=== PATIENT | female | born 1950 | race Caucasian/White ===

== ENCOUNTER → 2016-06-30 | Outpatient (CLI) | payer BC ==
[~2016-06-30] MED LIST: ASPEC81 PO; ATOR-22 PO; BIOT1CAP8 PO; LEVO112T2 PO; LSN5 PO; MELO7.5T5 PO; METF-384 PO; MULT-506 PO; OMEG10007 PO; OMEP40CA41 PO
--- NOTE | 2016-06-30 09:33 | DIAGNOSTIC IMAGING REPORT ---
LUMBAR SPINE CT CT DOSE: 616.47 mGy.cm HISTORY: Pain. Neuropathy. ACUTE BILATERAL LOW BACK PAIN W/ SCIATICA PRESENCE TECHNIQUE: Multiaxial CT images of the lumbar spine were performed and reformatted in the sagittal and coronal plane without the use of contrast. COMPARISON: None. FINDINGS: L1-L2: Negative for disc herniation or spinal stenosis. L2-L3: Minimal disc bulge. No significant spinal stenosis or foraminal stenosis. L3-L4: Moderate multifactorial spinal stenosis. Mild broad-based disc herniation. Moderate hypertrophic change posterior elements. Mild narrowing of the neuroforamina bilaterally. L4-L5. Moderate to significant multifactorial spinal stenosis. Broad-based disc herniation. Hypertrophic changes of posterior elements. Moderate compromise of the neuroforamina bilaterally. L5-S1: Focal posterior osteophytic reaction and posterior disc herniation. Moderate to significant multifactorial narrowing of the spinal canal. Moderate osteophytic narrowing of the neuroforamina bilaterally. IMPRESSION: 1. Significant degenerative disc change primarily from L4 through S1 2. Multifocal spinal stenosis at L4-L5, and to a somewhat lesser extent L5-S1 and L3-L4. 3. Moderate multifactorial narrowing of the bulk of the neuroforamina bilaterally. 4. No evidence for compression deformity or subluxation Electronically signed by: Willian Seaman M.D. 06/30/2016 9:32 AM Dictated Date/Time: 06/30/2016 9:26 AM
== END | disposition home or self-care (01) ==
LOC: C.CTS 09:12
PROVIDERS: ATTEND Orthopaedic Surgery
DX: M54.5 Low back pain (principal); M48.06 Spinal stenosis, lumbar region

== ENCOUNTER → 2016-09-05 | Outpatient (CLI) | payer BC ==
[2016-09-05 10:55] LABS: ESTIMATED AVERAGE GLUCOSE 131 mg/dl; HA1C FLAG Normal (Normal)
[2016-09-05 11:00] LABS: CALCIUM 9.9 mg/dl (8.5-10.1)
[2016-09-05 11:05] LABS: ALT/SGPT 24 U/L (12-78); BLOOD UREA NITROGEN 18 mg/dl (7-18); BUN/CREATININE RATIO 19.5 (10-20); CARBON DIOXIDE 28 mmol/L (21-32); CHLORIDE 106 mmol/L (98-107); CHOLESTEROL 144 mg/dl (0-200); CREATININE 0.94 mg/dl (0.60-1.20); GLUCOSE 101 mg/dl (70-99); POTASSIUM 4.2 mmol/L (3.5-5.1); SODIUM 142 mmol/L (136-145); TRIGLYCERIDES 227 mg/dl (0-150); VERY LOW DENSITY LIPOPROT CALC 45 mg/dl
[2016-09-05 11:17] LABS: ALB/GLOB RATIO 1.1 (0.9-2); ALKALINE PHOSPHATASE 93 U/L (45-117); AST/SGOT 21 U/L (15-37); CHOLESTEROL/HDL RATIO 3.1; HDL CHOLESTEROL 46 mg/dl; LDL CHOLESTEROL CALCULATED 53 mg/dl; THYROID STIMULATING HORMONE 0.306 uIu/ml (0.300-4.500)
[2016-09-05 11:22] LABS: RATIO 30.8 mcg/mg (0-30.0)
== END | disposition home or self-care (01) ==
LOC: C.LABBC 08:17
PROVIDERS: ATTEND Family Medicine
DX: I10 Essential (primary) hypertension (principal); E78.00 Pure hypercholesterolemia, unspecified; E03.9 Hypothyroidism, unspecified

== ENCOUNTER → 2016-11-07 | Outpatient (CLI) | payer BC ==
--- NOTE | 2016-11-08 07:41 | MAMMOGRAPHY REPORT ---
BILATERAL DIGITAL SCREENING MAMMOGRAM WITH CAD: 11/07/2016 CLINICAL HISTORY: Routine screening. Patient has no complaints. TECHNIQUE: Bilateral CC and MLO views were obtained. Current study was also evaluated with a Compute r Aided Detection (CAD) system. COMPARISON: Comparison is made to exams dated: 11/04/2015 mammogram, 10/14/2014 mammogram, 10/07/2013 m ammogram, 10/01/2012 mammogram, 09/20/2011 mammogram - [facility], and 06/11/1996 mamm ogram. BREAST COMPOSITION: The tissue of both breasts is almost entirely fatty. FINDINGS: The left MLO view is suboptimal due to reluctancy of patient to allow adequate positioning and compression given her left-sided pacemaker. Within the limitations of the exam, there are scatte red stable benign-appearing calcifications bilaterally. No new suspicious mass, architectural distor tion or cluster of microcalcifications is seen. IMPRESSION: ACR BI-RADS CATEGORY 1: NEGATIVE There is no mammographic evidence of malignancy. A 1 year screening mammogram is recommended. The pa tient will receive written notification of the results. Approximately 10% of breast cancers are not detected with mammography. A negative mammographic report should not delay biopsy if a clinically suggestive mass is present. Elza Caldwell M.D. ay/:11/07/2016 16:51:45 Talent Manager: Kay LANCE(R)(), [facility] letter sent: Normal 1/2 BI-RADS Code: ACR BI-RADS Category 1: Negative
== END | disposition home or self-care (01) ==
LOC: C.MAMM 14:00
PROVIDERS: ATTEND Family Medicine
DX: Z12.31 Encounter for screening mammogram for malignant neoplasm of breast (principal)

== ENCOUNTER → 2017-03-07 | Outpatient (CLI) | payer BC ==
[2017-03-07 10:47] LABS: BASO % 0.1 %; BASO ABS # 0.01 K/uL (0-0.2); COMPLETE YES; HEMATOCRIT 41.2 % (37-47); IG% 0.3 %; LYMPH ABS # 1.48 K/uL (1.2-3.4); MEAN CELL VOLUME 93.4 fL (80-100); MEAN CORPUSCULAR HEMOGLOBIN 32.2 pg (25-34); MEAN CORPUSCULAR HGB CONC 34.5 g/dl (32-36); MEAN PLATELET VOLUME 9.8 fL (7.4-10.4); MONO % 4.2 %; NEUT % 86.4 %; PLATELET COUNT 301 K/uL (130-400); RED BLOOD COUNT 4.41 M/uL (4.2-5.4); WHITE BLOOD COUNT 16.48 K/uL (4.8-10.8)
[2017-03-07 10:55] LABS: ESTIMATED AVERAGE GLUCOSE 123 mg/dl; HA1C FLAG Normal (Normal)
[2017-03-07 11:07] LABS: CREATININE RANDOM URINE 82.4 mg/dl
[2017-03-07 11:19] LABS: RATIO 19.9 mcg/mg (0-30.0)
[2017-03-07 13:38] LABS: ALT/SGPT 21 U/L (12-78); AST/SGOT 14 U/L (15-37); BLOOD UREA NITROGEN 17 mg/dl (7-18); BUN/CREATININE RATIO 17.3 (10-20); CALCIUM 9.7 mg/dl (8.5-10.1); CARBON DIOXIDE 25 mmol/L (21-32); CHLORIDE 106 mmol/L (98-107); CREATININE 0.99 mg/dl (0.60-1.20); GLUCOSE 129 mg/dl (70-99); SODIUM 139 mmol/L (136-145)
[2017-03-07 13:49] LABS: ALB/GLOB RATIO 1.1 (0.9-2); ALKALINE PHOSPHATASE 84 U/L (45-117); CHOLESTEROL 143 mg/dl (0-200); CHOLESTEROL/HDL RATIO 2.3; HDL CHOLESTEROL 63 mg/dl; LDL CHOLESTEROL CALCULATED 55 mg/dl; THYROID STIMULATING HORMONE 0.075 uIu/ml (0.300-4.500); TRIGLYCERIDES 124 mg/dl (0-150); VERY LOW DENSITY LIPOPROT CALC 25 mg/dl
== END | disposition home or self-care (01) ==
LOC: C.LABBC 09:08
PROVIDERS: ATTEND Nurse Practitioner Family
DX: K21.9 Gastro-esophageal reflux disease without esophagitis (principal); I10 Essential (primary) hypertension; E11.9 Type 2 diabetes mellitus without complications; E78.00 Pure hypercholesterolemia, unspecified; E03.9 Hypothyroidism, unspecified

== ENCOUNTER 2017-08-19 20:11 | Emergency (ER) | payer BC ==
[~2017-08-19] VITALS: Ht 149.9 cm; Wt 73.4 kg
[~2017-08-19 20:11] MED LIST changes: -ASPEC81 PO; +ASPI-320 PO
[2017-08-19 20:16] VITALS: TEMP 37; Ht 149.9 cm; Wt 73.4 kg
[2017-08-19] MEDS ORDERED: IBUPROFEN 600 MG TAB PO STA (21:11)
[2017-08-19] MEDS ORDERED: LSN20 PO (21:13)
[2017-08-19] MEDS ORDERED: NRN100 PO (21:13)
--- NOTE | 2017-08-19 21:13 | DIAGNOSTIC IMAGING REPORT ---
L HAND MIN 3 VIEWS ROUTINE CLINICAL HISTORY: eval for fx trauma COMPARISON: None. DISCUSSION: Moderate generalized degenerative change. Osteopenia. No evidence for fracture or dislocation. There is no evidence for soft tissue swelling. IMPRESSION: Degenerative change. Osteopenia. The above report was generated using voice recognition software. It may contain grammatical, syntax or spelling errors. Electronically signed by: Willian Seaman M.D. 08/19/2017 9:12 PM Dictated Date/Time: 08/19/2017 9:11 PM
--- NOTE | 2017-08-19 21:14 | DIAGNOSTIC IMAGING REPORT ---
L WRIST MIN 3 VIEWS ROUTINE CLINICAL HISTORY: eval for fx trauma COMPARISON: None. DISCUSSION: Generalized degenerative change. No well-defined evidence for fracture. Considerable degenerative change first carpometacarpal joint. There is no evidence for soft tissue swelling. IMPRESSION: Degenerative change. No acute process. The above report was generated using voice recognition software. It may contain grammatical, syntax or spelling errors. Electronically signed by: Willian Seaman M.D. 08/19/2017 9:12 PM Dictated Date/Time: 08/19/2017 9:12 PM
--- NOTE | 2017-08-19 21:15 | DIAGNOSTIC IMAGING REPORT ---
L RIBS UNILATERAL WITH PA CHEST CLINICAL HISTORY: eval for fx trauma. Pain. COMPARISON STUDY: None FINDINGS: Negative left ribs. Negative chest. IMPRESSION: Negative study The above report was generated using voice recognition software. It may contain grammatical, syntax or spelling errors. Electronically signed by: Willian Seaman M.D. 08/19/2017 9:13 PM Dictated Date/Time: 08/19/2017 9:13 PM
--- NOTE | 2017-08-19 21:21 | DIAGNOSTIC IMAGING REPORT ---
L HUMERUS MIN 2 VIEWS ROUTINE CLINICAL HISTORY: eval for fx trauma COMPARISON: None. DISCUSSION: The bones and joint spaces appear intact. There is no evidence of fracture, dislocation or bony disease. There is no evidence for soft tissue swelling. IMPRESSION: Negative study. The above report was generated using voice recognition software. It may contain grammatical, syntax or spelling errors. Electronically signed by: Willian Seaman M.D. 08/19/2017 9:20 PM Dictated Date/Time: 08/19/2017 9:19 PM
--- NOTE | 2017-08-19 21:22 | DIAGNOSTIC IMAGING REPORT ---
L SHOULDER MIN 2 VIEWS ROUTINE CLINICAL HISTORY: eval for fx trauma. Pain. COMPARISON: None. DISCUSSION: Moderate degenerative change. No evidence for fracture. Cortical margins are intact. There is no evidence for soft tissue swelling. IMPRESSION: No acute bony abnormality. The above report was generated using voice recognition software. It may contain grammatical, syntax or spelling errors. Electronically signed by: Willian Seaman M.D. 08/19/2017 9:21 PM Dictated Date/Time: 08/19/2017 9:20 PM
[2017-08-19 21:51] VITALS: BP 170/92; PULSE 73; O2SAT 99
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
== END 2017-08-19 21:52 | disposition home or self-care (01) ==
LOC: EDBD 20:11 → C.EDB 20:12
DX: S69.92XA Unspecified injury of left wrist, hand and finger(s), initial encounter (principal); S49.92XA Unspecified injury of left shoulder and upper arm, initial encounter; W10.1XXA Fall (on)(from) sidewalk curb, initial encounter; E11.9 Type 2 diabetes mellitus without complications; I10 Essential (primary) hypertension; Z90.710 Acquired absence of both cervix and uterus; F17.210 Nicotine dependence, cigarettes, uncomplicated; Z80.9 Family history of malignant neoplasm, unspecified; Z83.3 Family history of diabetes mellitus; Z82.49 Family history of ischemic heart disease and other diseases of the circulatory system; Z79.84 Long term (current) use of oral hypoglycemic drugs; Z79.899 Other long term (current) drug therapy; Z88.5 Allergy status to narcotic agent

== ENCOUNTER → 2017-08-23 | Outpatient (CLI) | payer BC ==
[~2017-08-23] MED LIST changes: -ASPI-320 PO; -BIOT1CAP8 PO; +LSN20 PO; -LSN5 PO; +NRN100 PO
--- NOTE | 2017-08-23 14:16 | DIAGNOSTIC IMAGING REPORT ---
RIBS BILATERAL WITH PA CHEST CLINICAL HISTORY: Bilateral chest wall pain. COMPARISON STUDY: Chest radiograph August 22, 2015 and left rib series August 19, 2017. FINDINGS: There is no pneumothorax or pleural effusion. Lungs are clear. A dual-lead left subclavian pacemaker is in place. Cardiomediastinal silhouette is unremarkable. No right or left-sided rib fractures are identified by radiography. Linear left basilar opacity suggestive of atelectasis. IMPRESSION: No pneumothorax. No right or left-sided rib fractures identified by radiography. Electronically signed by: Myron Kapoor M.D. 08/23/2017 2:15 PM Dictated Date/Time: 08/23/2017 2:03 PM
== END | disposition home or self-care (01) ==
LOC: C.RADBC 13:27
PROVIDERS: ATTEND Nurse Practitioner Family
DX: R07.89 Other chest pain (principal)

== ENCOUNTER → 2017-09-05 | Outpatient (CLI) | payer BC ==
[2017-09-05 10:55] LABS: BASO % 0.1 %; BASO ABS # 0.01 K/uL (0-0.2); EOS % 2.4 %; EOS ABS # 0.19 K/uL (0-0.5); HEMATOCRIT 41.8 % (37-47); IG# 0.02 K/uL (0.00-0.02); LYMPH % 32.3 %; LYMPH ABS # 2.53 K/uL (1.2-3.4); MEAN CELL VOLUME 93.1 fL (80-100); MEAN CORPUSCULAR HEMOGLOBIN 31.2 pg (25-34); MEAN CORPUSCULAR HGB CONC 33.5 g/dl (32-36); MEAN PLATELET VOLUME 9.7 fL (7.4-10.4); MONO % 7.7 %; NEUT % 57.2 %; NEUT ABS # 4.48 K/uL (1.4-6.5); PLATELET COUNT 313 K/uL (130-400); RED CELL DISTRIBUTION WIDTH SD 47.6 fL (36.4-46.3); WHITE BLOOD COUNT 7.83 K/uL (4.8-10.8)
[2017-09-05 11:55] LABS: HEMOGLOBIN A1C 6.1 % (4.5-5.6)
[2017-09-05 14:16] LABS: ALBUMIN 3.6 gm/dl (3.4-5.0); ALT/SGPT 23 U/L (12-78); AST/SGOT 18 U/L (15-37); BLOOD UREA NITROGEN 21 mg/dl (7-18); CALCIUM 9.3 mg/dl (8.5-10.1); CARBON DIOXIDE 25 mmol/L (21-32); CREATININE 0.95 mg/dl (0.60-1.20); GLUCOSE 102 mg/dl (70-99); POTASSIUM 4.1 mmol/L (3.5-5.1); SODIUM 140 mmol/L (136-145)
[2017-09-05 14:27] LABS: ALKALINE PHOSPHATASE 91 U/L (45-117); CHOLESTEROL 155 mg/dl (0-200); LDL CHOLESTEROL CALCULATED 70 mg/dl; TOTAL PROTEIN 7.1 gm/dl (6.4-8.2)
== END | disposition home or self-care (01) ==
LOC: C.LABBC 08:21
PROVIDERS: ATTEND Nurse Practitioner Family
DX: I10 Essential (primary) hypertension (principal); E11.9 Type 2 diabetes mellitus without complications; E03.9 Hypothyroidism, unspecified; E78.00 Pure hypercholesterolemia, unspecified; D64.9 Anemia, unspecified; R76.8 Other specified abnormal immunological findings in serum; I35.9 Nonrheumatic aortic valve disorder, unspecified

== ENCOUNTER 2018-05-14 08:14 | Inpatient (IN) ==
--- NOTE | 2018-05-07 11:30 | Anesthesiology Consultation ---
Date of Service May 07, 2018 Assessment & Plan Plan: - Cardio= 04/02/18= Normal pacemaker function. "Feeling well." Followup in one year recommended. S/P 09/2017= LEFT SHOULDER SCOPE= 10/10/17= GRADE VIEW 2, MAC 3, ETT 7.0 AT [facility]. Chart Review Chart Review: Acceptable Risk for Surgery and Patient seen in Pre Admission Testing Teaching & Discussion Pre-Anesthesia Teaching/Discussion Notes: Instructed NPO after midnight before surgery,except medications with 15 cc of water. Medication instructions provided according to the PAT guidelines. History Surgery Operation Date: 05/14/18 07:30 Proposed Procedures p L3-L4, L4-L5, L5-S1 Laminectomy and Fusion - Eugene Maza, Height/Weight Height: 4 ft 11 in Weight: 69.1 kg Allergies Allergy/AdvReac Type Severity Reaction Status Date / Time nickel Allergy Mild Rash Verified 04/30/18 10:28 oxycodone AdvReac Mild GI UPSET Verified 04/30/18 10:28 Additional Notes: OR/surgeon aware of nickel allergy Medications Home Medications Medication Instructions Recorded Confirmed Last Taken acetaminophen [Tylenol Extra 1,000 mg PO TID 02/20/18 04/30/18 02/25/18 20:00 Strength] albuterol sulfate [Ventolin HFA] 1 - 2 puff INHALATION Q4 PRN 02/20/18 04/30/18 Unknown ascorbic acid (vitamin C) [Vitamin 1,000 mg PO QAM 02/20/18 04/30/18 02/25/18 10 :00 C] atorvastatin 20 mg PO HS 02/20/18 04/30/18 02/25/18 20:00 celecoxib 200 mg PO BID 02/20/18 04/30/18 02/25/18 20:00 gabapentin 400 mg PO TID 02/20/18 04/30/18 02/25/18 20:00 hydrochlorothiazide 25 mg PO QAM 02/20/18 04/30/18 02/25/18 10:00 lisinopril 20 mg PO BID 02/20/18 04/30/18 02/25/18 10:00 metformin 1,000 mg PO BID 02/20/18 04/30/18 02/25/18 20:00 multivitamin 1 tab PO QAM 02/20/18 04/30/18 02/25/18 10:00 omega 2-dbt-yhy-fish oil [Fish Oil] 1 cap PO TID 02/20/18 04/30/18 02/25/18 20: 00 omeprazole 40 mg PO QAM 02/20/18 04/30/18 02/25/18 10:00 levothyroxine 100 mcg PO QAM 04/08/18 04/30/18 Unknown Past Medical History Medical History Asthmatic bronchitis NO RECENT ISSUES Diabetes mellitus, type 2 NIDDM Diverticular disease GERD (gastroesophageal reflux disease) CONTROLLED Hiatal hernia Hyperlipidemia Hypertension Hypothyroidism Obesity Osteoarthritis Pacemaker [employer] IMPLANTED 05/26 AVB LAST PACER CHECK 04/02/18 Restless leg syndrome Spinal stenosis Past Family History Family History Mother Family history of diabetes mellitus Family hx of colon cancer Sister Family history of diabetes mellitus Grandfather Family history of diabetes mellitus maternal Family/Other Family history of diabetes mellitus maternal uncle Past Surgical History Surgical History History of colonoscopy History of dilatation and curettage History of esophagogastroduodenoscopy (EGD) History of repair of left rotator cuff 09/2017= LEFT SHOULDER SCOPE= 10/10/17= GRADE VIEW 2, MAC 3, ETT 7.0 AT [facility] History of tonsillectomy History of tooth extraction WISDOM TEETH History of total abdominal hysterectomy and bilateral salpingo-oophorectomy History of total left knee replacement (TKR) History of total right knee replacement (TKR) S/P LASIK surgery of both eyes Status post left foot surgery BUNIONECTOMY Past Anesthesia History No Hx of Anesthesia Complications and No Family Hx of Anesthesia Complications History of PONV No Motion Sickness Screening History of Motion Sickness: Yes Social History Smoking Status: Current every day smoker tobacco type: cigarettes Do You Dip or Chew Tobacco: No Smoking End Date: SMOKES 3/4 PPD X 40 YRS Hx Alcohol Use: No Hx Substance Use: No Exercise / Class Metabolic Activity III < 4 Walking/Shop/Light housework Review of Systems Patient denies chest pain, shortness of breath, cough, wheezing, palpitations. Physical Exam Vital Signs VITALS BP 151/86 P 69 TEMP 97.7 SP02 96%RA RESP 20 Full neck and c-spine range of motion. Full TMJ range of motion. TMD 2.5 finger breaths Mallampati Score 3 Dentition: "cracked" molar per patient Lungs: clear throughout to auscultation Cardiac: regular rate and rhythm, no murmurs noted Spine: normal Carotid arteries: negative bruit Extremities: no edema Testing Electrocardiogram Date: 10/03/17 AV dual paced rhythm at 65bpm Chest X-Ray Date: 10/03/17 Findings: + NAD Echocardiogram Date: 03/28/16 LVEF 60-65%. No RWMA. Grade I DD. Mild AV sclerosis. Other Testing Pacer check= 04/02/18= 6.5 years estimated. "Mostly ventricular pacing with small R waves. No significant arrhythmias. Normal heart rate histograms" per 02/08 cardio office visit note. Pacer check= 12/06/17= [employer]. Mode AAIR <=> DDDR. Mode switched 0%. AP 32%. RVP 81.7%. Laboratory Results 05/07/18 11:58 05/07/18 11:58 Blood Type A Positive 05/07/18 11:58 Antibody Screen NEGATIVE 05/07/18 11:58 PT 10.6 Seconds (9.0-12.0) 05/07/18 11:58 INR 1.1 (0.9-1.1) 05/07/18 11:58 APTT 28.0 Seconds (21.0-31.0) 05/07/18 11:58 Surgeon made aware elevated WBC* 03/12/18 HGBA1C 6.1%
--- NOTE | 2018-05-07 11:39 | PAT Medication Instructions ---
Medication Instructions Date of Service May 07, 2018 Home Medications acetaminophen [Tylenol Extra 1,000 mg PO TID albuterol sulfate [Ventolin HFA] 1 - 2 puff INHALATION Q4 PRN ascorbic acid (vitamin C) [Vitamin 1,000 mg PO QAM atorvastatin 20 mg PO HS celecoxib 200 mg PO BID gabapentin 400 mg PO TID hydrochlorothiazide 25 mg PO QAM lisinopril 20 mg PO BID metformin 1,000 mg PO BID multivitamin 1 tab PO QAM omega 5-qdy-qfs-fish oil [Fish Oil] 1 cap PO TID omeprazole 40 mg PO QAM levothyroxine 100 mcg PO QAM ASK your surgeon for instructions celecoxib 200 mg PO BID STOP taking 2 weeks before surgery (or as soon as possible if surgery is within 2 weeks) omega 7-ccu-vft-fish oil [Fish Oil] 1 cap PO TID DO NOT take the morning of surgery ascorbic acid (vitamin C) [Vitamin 1,000 mg PO QAM hydrochlorothiazide 25 mg PO QAM lisinopril 20 mg PO BID metformin 1,000 mg PO BID multivitamin 1 tab PO QAM Take morning of surgery With a small sip of water, OTHERWISE NOTHING TO EAT OR DRINK AFTER MIDNIGHT: acetaminophen [Tylenol Extra 1,000 mg PO TID (okay to take up to 4 hours prior to surgery if needed) albuterol sulfate [Ventolin HFA] 1 - 2 puff INHALATION Q4 PRN (use if needed; please bring with you to hospital day of surgery if possible) gabapentin 400 mg PO TID omeprazole 40 mg PO QAM levothyroxine 100 mcg PO QAM Take evening before surgery acetaminophen [Tylenol Extra 1,000 mg PO TID albuterol sulfate [Ventolin HFA] 1 - 2 puff INHALATION Q4 PRN (if needed) atorvastatin 20 mg PO HS gabapentin 400 mg PO TID lisinopril 20 mg PO BID metformin 1,000 mg PO BID Other Notes If you have any questions please call us at [phone] or [phone] or [phone] or [phone]
[2018-05-07 14:13] LABS: Basophils # (auto) 0.03 K/uL (0-0.2); Basophils % (auto) 0.3 %; Eosinophils # (auto) 0.16 K/uL (0-0.5); Eosinophils % (auto) 1.4 %; Hematocrit (blood only) 44.3 % (37-47); Hemoglobin 14.8 g/dL (12.0-16.0); Immature Granulocytes # (auto) 0.03 K/uL (0.00-0.02); Immature Granulocytes % (auto) 0.3 %; Lymphocytes # (auto) 3.71 K/uL (1.2-3.4); Lymphocytes % (auto) 33.3 %; Mean Corpuscular Hgb Conc 33.4 g/dL (32-36); Mean Corpuscular Volume 93.1 fL (80-100); Mean Platelet Volume 10.5 fL (7.4-10.4); Monocytes # (auto) 0.56 K/uL (0.11-0.59); Neutrophils # (auto) 6.66 K/uL (1.4-6.5); Neutrophils % (auto) 59.7 %; Platelet Count 320 K/uL (130-400); RDW Coefficient of Variation 14.3 % (11.5-14.5); RDW Standard Deviation 48.3 fL (36.4-46.3); Red Blood Count 4.76 M/uL (4.2-5.4); White Blood Count 11.15 K/uL (4.8-10.8)
[2018-05-07 14:31] LABS: INR 1.1 (0.9-1.1); Partial Thromboplastin Ratio 1.1; Prothrombin Time 10.6 Seconds (9.0-12.0)
[2018-05-07 14:33] LABS: BUN Creatinine Ratio 14.2 (10-20); Calcium 9.7 mg/dl (8.5-10.1); Creatinine Clr Calc Pharmacy 41.4 ml/min; Est GFR (African American) 58.7; Est GFR (Non-African American) 50.6; Potassium 4.6 mmol/L (3.5-5.1)
--- NOTE | 2018-05-11 12:43 | History and Physical Report ---
DATE OF ADMISSION: 05/14/2018 CHIEF COMPLAINT: Back pain, lower extremity difficulty. WORKING DIAGNOSIS: Spinal stenosis/listhesis, lumbar spine. HISTORY OF PRESENT ILLNESS: She is a delightful patient. I am meeting her over the last few months. She has assortment of back and lower extremity difficulty, neurogenic claudication. She has no associated fevers, sweats, chills, or bowel and bladder concerns. PAST MEDICAL HISTORY: Positive for diabetes, thyroid disease, hypertension. PAST SURGICAL HISTORY: Knee replacement, pacemaker, hysterectomy. ALLERGIES: OXYCODONE. FAMILY HISTORY: Heart disease, colon CA. SOCIAL HISTORY: She is . No alcohol, tobacco. Very active lifestyle. The pain is shuttered down. REVIEW OF SYSTEMS: Negative for fever, sweats, chills. Ear, nose and throat negative. Denies chest pain, palpitations. No asthma, wheezing. No shortness of breath. No nausea, vomiting, urgency, frequency, dysuria. Her major complaint is back and lower extremity difficulty. PHYSICAL EXAMINATION: GENERAL: She is 4 feet 11 inches, 150. She is in distress. VITAL SIGNS: Blood pressure 130/80, pulse 80, respirations 16. HEENT: Essentially normal. Pupils react to light and accommodation. Ear, nose and throat clear. CARDIAC: Normal S1, S2, no S3. LUNGS: Clear to auscultation. No rales, rhonchi, wheezing. ABDOMEN: Soft and nontender. NEUROLOGICAL: Slight decrease in dorsiflexion and plantarflexion, slight loss of sensation. Images demonstrate stenosis and listhesis and slight degenerative scoliosis of the spine. PLAN: Includes a laminectomy and fusion, L3-S1 lumbar spine.
[~2018-05-14 08:14] MED LIST changes: -ATOR-22 PO; +CEFAZOLIN 2000MG 2,000 MG/15 ML SYR IV SCH; +LACTATED RINGER'S 1,000 ML IV SCH; -LEVO112T2 PO; -LSN20 PO; -MELO7.5T5 PO; -METF-384 PO; -MULT-506 PO; -NRN100 PO; -OMEG10007 PO; -OMEP40CA41 PO; +SODIUM CHLORIDE 0.9% 1000ML IV SCH
[2018-05-14] MEDS ORDERED: MIDAZOLAM HCL 1 MG/ML 2ML VIAL ONE (08:26)
[2018-05-14] MEDS ORDERED: fentaNYL citrate 100 MCG/2 ML VIAL ONE ×2 (08:27→15:14)
[2018-05-14] MEDS ORDERED: VANCOMYCIN HCL 1000MG/20ML VIAL ONE (10:47)
[2018-05-14] MEDS ORDERED: THROMBIN FOR SOLN 20000 UNIT KIT ONE (10:48)
[2018-05-14] MEDS ORDERED: BACITRACIN INJ 50,000 UNIT VIAL ONE (10:48)
[2018-05-14] MEDS ORDERED: GELATIN SPONGE SZ 100 ONE (10:48)
[2018-05-14] MEDS ORDERED: BUPIVACAINE/EPINEPHRINE 0.5% MPF 1:200,000 30 ML VIAL ONE (10:48)
--- NOTE | 2018-05-14 10:57 | History & Physical Bridge Note ---
Date of Service May 14, 2018 History & Physical Bridge Note I have examined the patient, reviewed the History & Physical and in the interval since the performance of the History & Physical I have noted the following changes of clinical significance: no changes noted
[2018-05-14] MEDS ORDERED: HYDROmorphone INJ 2 MG/ML SYR/VIAL ONE (12:09)
[2018-05-14] MEDS ORDERED: LARYING-O-JET KIT (LTA) ONE (12:14)
[2018-05-14] MEDS ORDERED: PROPOFOL IV EMULSION 10 MG/ML 20 ML VIAL IV ONE (12:14)
[2018-05-14] MEDS ORDERED: ONDANSETRON INJ 2 MG/ML 2 ML VIAL ONE (12:14)
[2018-05-14] MEDS ORDERED: DEXAMETHASONE SOD INJ 4 MG/ML VIAL ONE (12:14)
[2018-05-14] MEDS ORDERED: ROCURONIUM BROMIDE 10 MG/ML 5 ML VIAL ONE (12:14)
[2018-05-14] MEDS ORDERED: GLYCOPYRROLATE 0.2 MG/ML VIAL ONE (12:14)
[2018-05-14] MEDS ORDERED: NEOSTIGMINE METHYLSULFATE 5 MG/5 ML SYR ONE (12:14)
[2018-05-14] MEDS ORDERED: PHENYLEPHRINE HCL 10 MG/ML VIAL ONE (12:14)
[2018-05-14] MEDS ORDERED: LIDOCAINE HCL 2% 2 ML VIAL/AMP(20MG/ML) INFIL ONE (12:14)
--- NOTE | 2018-05-14 14:22 | Fluoroscopy Report ---
FL spine 1V any level CLINICAL HISTORY: 68 years-old Female presenting with L3-S1 LAMI AND FUSION. TECHNIQUE: 1 fluoroscopic image(s) recorded as part of an intraoperative procedure. COMPARISON: None. FINDINGS/IMPRESSION: Transpedicular screw fixation of L3-S1. Surgical and she mentation projects over the posterior lumbar region. Please see surgical report for further details. Fluoroscopy dosage (mGy): 2.83. Fluoroscopy time: 6.2 seconds. Number or time of fluoroscopic spot images: 0. Electronically signed by: Ruben Hernández M.D. 05/14/2018 2:21 PM
--- NOTE | 2018-05-14 14:31 | Post Operative Brief Note ---
Immediate Post Op Note v1 Date of Surgery May 14, 2018 Pre & Post Diagnosis Operation Date: 05/14/18 10:30 Pre-Op Diagnosis: Spinal Stenosis Post-Op Diagnosis: Spinal Stenosis Procedure Operation Date: 05/14/18 10:30 Actual Procedures p L3-L4, L4-L5, L5-S1 Laminectomy and Fusion - Eugene Maza DO Surgeon Eugene Maza DO Soil Engineer kwaku Estimated Blood Loss 300 Findings Consistent with Post-Op Diagnosis Drains Calloway Catheter and Hemovac Drain Complications none
--- NOTE | 2018-05-14 15:09 | Anesthesiology Progress Note ---
Date of Service May 14, 2018 Anesthesia Post Procedure Vital Signs Vital Signs: Temp Pulse Pulse Resp BP BP Pulse Ox 05/14/18 15:07 36.5 C 60 16 147/83 H 100 05/14/18 14:46 60 8 L 150/78 H 100 05/14/18 14:45 60 15 100 05/14/18 14:41 60 15 157/76 H 100 05/14/18 14:40 60 11 L 100 05/14/18 14:36 60 9 L 154/82 H 100 05/14/18 14:35 61 12 100 05/14/18 14:30 61 10 L 169/83 H 100 05/14/18 14:26 36.4 C L 67 65 17 152/92 H 153/92 H 100 05/14/18 14:25 100 05/14/18 09:04 36.8 C 85 20 132/79 95 Pain Intensity Right Leg: Pain Intensity: 0 Back: Pain Intensity: 0 Notes Mental Status: alert / awake / arousable and participated in evaluation Nausea / Vomiting: adequately controlled Pain: adequately controlled Airway Patency, RR, SpO2: stable & adequate BP & HR: stable & adequate Hydration State: stable & adequate Anesthetic Complications: no major complications apparent and Pt Satisfied with anesthetic care
[2018-05-14] MEDS ORDERED: ONDANSETRON INJ 2 MG/ML 2 ML VIAL IV PRN (15:11)
[2018-05-14] MEDS ORDERED: HYDROmorphone INJ 1 MG/ML SYRINGE IV PRN (15:11)
[2018-05-14] MEDS ORDERED: ePHEDrine sulfate 50 MG/ML AMP IV PRN (15:11)
[2018-05-14] MEDS ORDERED: fentaNYL citrate 100 MCG/2 ML VIAL IV PRN (15:11)
[2018-05-14] MEDS ORDERED: ATROPINE SULFATE 0.1 MG/ML 10ML SYR IV PRN (15:11)
--- NOTE | 2018-05-14 15:35 | Operative Report ---
DATE OF OPERATION: 05/14/2018 PREOPERATIVE DIAGNOSIS: Instability and severe stenosis, lumbar spine, L3 to the sacrum. POSTOPERATIVE DIAGNOSIS: Instability and severe stenosis, lumbar spine, L3 to the sacrum. PROCEDURES: Include 1. Laminectomy L3, L4, L5, and sacrum, 4-level laminectomy, foraminotomy, partial facetectomy, and decompression of the cauda equina. 2. Pedicle in screw segmental instrumentation, L3, L4, L5. 3. Posterior lateral fusion, L3, L4, L5, and sacrum bilaterally. SURGEON: Eugene Maza DO. LAN SPECIALIST: Cruzito Clayton PA-C. COMPLICATIONS: There were no complications. BLOOD LOSS: Controlled at 300. COUNTS: Sponge and needle counts correct. IMPLANTS USED: Holographic Projection for Architecture. DESCRIPTION OF PROCEDURE: Patient was taken to the operating room. A general intubated anesthetic provided to the patient. Calloway catheter administered as well. Placed prone, prepped and draped sterile. We made skin incision, fascial incision. We came down on the spine. We put in deep self-retaining retractor. We decompressed the neural elements starting at the sacrum up to L5, to L4, and to L3, essentially a 4 level decompression laminectomy. Foraminotomies were obtained as well and provided and partial facetectomy. We tried to preserve some of the facet joints. I felt she was moderately unstable, not grossly unstable, but she did have a spondylolisthesis, so we decided to instrument the spine, safely getting pedicle screws on the left hand side at L4, L5, and sacrum and the right hand side sacrum and L4. I skipped L5, I felt the screw was in jeopardy. We irrigated it thoroughly. X-rays were appropriate. Prior to closure, I put several sutures, a small bleb on the dura, I could not tell if it was a little bleb that came on from her stenosis or a small tear, really was hard to say. In any event, I placed 3-4 sutures in it to make that water tight. We then irrigated thoroughly with saline, about 500 mL. I placed some Gelfoam over the dural structures, some DuraSeal over the dural structures as well. We closed fascia to fascia with #1 Vicryl suture, 2-0 in subcuticular layer, 3-0 nylon on the skin. Prior to closure and after irrigation, we bone grafted the spine, safely getting bone graft from L3, L4, L5, and the sacrum bilaterally. Again, all we closed over drain over vancomycin powder. Sterile dressings applied. The patient extubated to PACU stable. No apparent complications. I attest to the content of the Intraoperative Record and any orders documented therein. Any exception s are noted below.
[2018-05-14] MEDS ORDERED: BISACODYL 10 MG SUPP PR PRN (16:09)
[2018-05-14] MEDS ORDERED: HYDROmorphone INJ 0.5 MG/0.5 ML SYR IV PRN (16:09)
[2018-05-14] MEDS ORDERED: ALBUTEROL HFA 8 GM INHALER INH PRN (16:09)
[2018-05-14] MEDS ORDERED: ACETAMINOPHEN 1,000 MG/100 ML VIAL IV PRN (16:09)
[2018-05-14] MEDS ORDERED: MAGNESIUM HYDROXIDE SUSP 30 ML UDC PO PRN (16:09)
[2018-05-14] MEDS: ONDANSETRON INJ 2 MG/ML 2 ML VIAL IV PRN (16:54)
[2018-05-14] MEDS: METFORMIN HCL 500 MG TAB PO SCH (18:45)
[2018-05-14] MEDS: CEFAZOLIN 2000MG 2,000 MG/15 ML SYR IV SCH (19:43)
[2018-05-14] MEDS: LISINOPRIL 20 MG TAB PO SCH (20:46)
[2018-05-14] MEDS: ATORVASTATIN 20 MG TAB PO SCH (21:11)
[2018-05-14] MEDS: DOCUSATE SODIUM/SENNA 50/8.6MG TAB PO SCH (21:11)
[2018-05-14] MEDS: CeleBREX 200 MG CAP PO SCH (21:12)
[2018-05-14] MEDS: GABAPENTIN 400 MG CAP PO SCH (21:13)
[2018-05-14] MEDS: OMEGA-3 (PURIFIED FISH OIL) 1 GM CAP PO SCH (21:13)
[2018-05-14] MEDS: ACETAMINOPHEN 500 MG TAB PO SCH (21:13)
[2018-05-14] MEDS: OXYCODONE HCL IR 5 MG TAB (IMMEDIATE RELEASE) PO PRN (22:48)
[2018-05-15] MEDS: CEFAZOLIN 2000MG 2,000 MG/15 ML SYR IV SCH (03:19)
[2018-05-15] MEDS: LEVOTHYROXINE SODIUM 100 MCG TABLET PO SCH (05:33)
[2018-05-15] MEDS: SODIUM CHLORIDE 0.9% 1000ML 1,000 ML IV SCH ×2 (06:33→06:34)
--- NOTE | 2018-05-15 08:11 | Anesthesiology Progress Note ---
Date of Service May 15, 2018 Anesthesia Post Procedure Vital Signs Vital Signs: Temp Pulse Pulse Pulse Resp BP BP 05/15/18 07:03 36.8 C 60 18 99/66 L 05/15/18 03:20 36.6 C 60 17 92/59 L 05/14/18 23:21 36.7 C 62 17 104/65 05/14/18 20:45 60 121/70 05/14/18 19:50 05/14/18 19:10 34.6 C L 60 16 126/60 05/14/18 18:00 36.2 C L 60 14 144/84 H 05/14/18 17:02 36.4 C L 60 14 119/71 05/14/18 16:28 36.5 C 60 14 132/82 05/14/18 16:00 36.4 C L 60 16 132/82 05/14/18 15:51 60 6 L 125/72 05/14/18 15:50 60 17 05/14/18 15:45 60 13 135/74 05/14/18 15:41 60 4 L 120/67 05/14/18 15:40 36.5 C 60 60 7 L 120/67 05/14/18 15:35 60 14 126/74 05/14/18 15:30 60 9 L 114/60 05/14/18 15:25 60 14 05/14/18 15:20 60 11 L 05/14/18 15:16 61 16 161/87 H 05/14/18 15:15 60 19 05/14/18 15:11 60 17 165/85 H 05/14/18 15:10 60 18 05/14/18 15:07 36.5 C 60 60 12 147/83 H 05/14/18 15:06 60 10 L 147/83 H 05/14/18 15:05 60 12 162/78 H 05/14/18 15:01 60 10 L 152/110 H 05/14/18 15:00 60 12 05/14/18 14:56 60 16 156/94 H 05/14/18 14:55 60 15 05/14/18 14:51 60 13 148/78 H 05/14/18 14:50 60 13 05/14/18 14:47 60 15 05/14/18 14:46 60 8 L 150/78 H 05/14/18 14:45 60 15 05/14/18 14:41 60 15 157/76 H 05/14/18 14:40 60 11 L 05/14/18 14:36 60 9 L 154/82 H 05/14/18 14:35 61 12 05/14/18 14:30 61 10 L 169/83 H 05/14/18 14:26 36.4 C L 67 65 17 152/92 H 153/92 H 05/14/18 14:25 05/14/18 09:04 36.8 C 85 20 132/79 Pulse Ox 05/15/18 07:03 95 05/15/18 03:20 95 05/14/18 23:21 92 05/14/18 20:45 93 05/14/18 19:50 97 05/14/18 19:10 97 05/14/18 18:00 100 05/14/18 17:02 100 05/14/18 16:28 100 05/14/18 16:00 100 05/14/18 15:51 99 05/14/18 15:50 91 05/14/18 15:45 100 05/14/18 15:41 98 05/14/18 15:40 97 05/14/18 15:35 82 L 05/14/18 15:30 99 05/14/18 15:25 99 05/14/18 15:20 100 05/14/18 15:16 100 05/14/18 15:15 100 05/14/18 15:11 100 05/14/18 15:10 100 05/14/18 15:07 100 05/14/18 15:06 99 05/14/18 15:05 100 05/14/18 15:01 100 05/14/18 15:00 100 05/14/18 14:56 99 05/14/18 14:55 100 05/14/18 14:51 100 05/14/18 14:50 100 05/14/18 14:47 100 05/14/18 14:46 100 05/14/18 14:45 100 05/14/18 14:41 100 05/14/18 14:40 100 05/14/18 14:36 100 05/14/18 14:35 100 05/14/18 14:30 100 05/14/18 14:26 100 05/14/18 14:25 100 05/14/18 09:04 95 Pain Intensity Right Leg: Pain Intensity: 0 Back: Pain Intensity: 0 Notes Mental Status: alert / awake / arousable and participated in evaluation Patient Amnestic to Procedure: Yes Nausea / Vomiting: adequately controlled Pain: adequately controlled Airway Patency, RR, SpO2: stable & adequate BP & HR: stable & adequate Hydration State: stable & adequate Anesthetic Complications: no major complications apparent
[2018-05-15] MEDS: METFORMIN HCL 500 MG TAB PO SCH ×2 (08:33→17:08)
[2018-05-15] MEDS: CeleBREX 200 MG CAP PO SCH ×2 (08:33→21:39)
[2018-05-15] MEDS: GABAPENTIN 400 MG CAP PO SCH ×3 (08:34→21:35)
[2018-05-15] MEDS: MULTIVITAMIN TAB PO SCH (08:34)
[2018-05-15] MEDS: OMEGA-3 (PURIFIED FISH OIL) 1 GM CAP PO SCH ×3 (08:34→21:35)
[2018-05-15] MEDS: PANTOprazole 40 MG TAB PO SCH (08:35)
[2018-05-15] MEDS: ACETAMINOPHEN 500 MG TAB PO SCH ×3 (08:35→21:36)
[2018-05-15] MEDS: ASCORBIC ACID 500 MG TAB PO SCH (08:36)
[2018-05-15] MEDS: LISINOPRIL 20 MG TAB PO SCH ×2 (08:38→21:37)
[2018-05-15] MEDS: hydroCHLOROthiazide 25 MG TAB PO SCH (08:39)
[2018-05-15] MEDS: OXYCODONE HCL IR 5 MG TAB (IMMEDIATE RELEASE) PO PRN ×4 (08:41→21:33)
[2018-05-15] MEDS: ONDANSETRON INJ 2 MG/ML 2 ML VIAL IV PRN (14:47)
[2018-05-15] MEDS: ATORVASTATIN 20 MG TAB PO SCH (21:35)
[2018-05-15] MEDS: DOCUSATE SODIUM/SENNA 50/8.6MG TAB PO SCH (21:40)
[2018-05-16] MEDS: LEVOTHYROXINE SODIUM 100 MCG TABLET PO SCH (06:18)
--- NOTE | 2018-05-16 08:13 | Discharge Summary ---
She is alert, oriented, has a fairly uneventful postoperative recovery from fairly rigorous spinal surgery reconstruction. She is doing well. Better motion, decreased pain. Functional. Taking p.o. No deficits. IMPRESSION: Status post reconstruction, spinal surgery. PLAN: Will hopefully get her to inpatient rehab today. She has a prescription on her chart. She has a followup appointment. Her wound should be kept clean and dry. Up and ambulate with the walker as needed. Careful with bending, stooping, lifting. Use the back brace as indicated. I should see her back in the office in approximately 14 days.
[2018-05-16] MEDS: CeleBREX 200 MG CAP PO SCH (08:25)
[2018-05-16] MEDS: GABAPENTIN 400 MG CAP PO SCH ×2 (08:25→13:53)
[2018-05-16] MEDS: ASCORBIC ACID 500 MG TAB PO SCH (08:26)
[2018-05-16] MEDS: PANTOprazole 40 MG TAB PO SCH (08:27)
[2018-05-16] MEDS: OMEGA-3 (PURIFIED FISH OIL) 1 GM CAP PO SCH ×2 (08:27→13:54)
[2018-05-16] MEDS: METFORMIN HCL 500 MG TAB PO SCH ×2 (08:27→16:42)
[2018-05-16] MEDS: MULTIVITAMIN TAB PO SCH (08:27)
[2018-05-16] MEDS: ACETAMINOPHEN 500 MG TAB PO SCH ×2 (08:28→13:54)
[2018-05-16] MEDS: LISINOPRIL 20 MG TAB PO SCH (08:29)
[2018-05-16] MEDS: hydroCHLOROthiazide 25 MG TAB PO SCH (08:30)
[2018-05-16] MEDS: OXYCODONE HCL IR 5 MG TAB (IMMEDIATE RELEASE) PO PRN ×3 (08:32→16:56)
[2018-05-16] MEDS: ONDANSETRON INJ 2 MG/ML 2 ML VIAL IV PRN (16:37)
--- NOTE | 2018-05-17 13:38 | Coding Query ---
CODING QUERY To promote full compliance with coding requirements relating to patient care, provider participation is requested in all cases of clinical coder uncertainty. Please assist us with the question(s) below: Coding Question(s): Please clarify below, the type of Bone Grafting that was used in the procedure on 05/14/18. ( ) Autograft ( ) Allograft ( ) Both Autograft and Allograft ( ) Other: Please Specify Physician's Response(s): Thank you Gilma Santoyo Principal Diagnosis: "�that condition established after study, to be chiefly responsible for occasioning the admission of the patient to the hospital for care." Co-Existing Principal Diagnosis: "�when two or more diagnoses equally meet the criteria for principal diagnosis as determined by the circumstances of admission , diagnostic work up, and/or therapy provided, and the Alphabetic Index, Tabular List, or another coding guideline does not provide sequencing direction , any one of the diagnoses may be sequenced first." "When the physician has documented what appears to be a current diagnosis in the body of the record, but has not included the diagnosis in the final diagnostic statement, the physician should be asked whether the diagnosis should be added." ([facility] 2 QTR90. p3-4) DEEPAK
--- NOTE | 2018-05-22 12:23 | Operative Report ---
DATE OF OPERATION: 05/18/2018 ADDENDUM This is a coding query. The graft used for the patient was a combination of autograft and allograft. I attest to the content of the Intraoperative Record and any orders documented therein. Any exception s are noted below.
== END 2018-05-16 17:10 | DRG 460 ==
LOC: ASU 08:14 → 3E 14:37

== ENCOUNTER 2021-08-06 11:24 | Observation (INO) ==
--- NOTE | 2021-01-20 15:32 | PAT Medication Instructions ---
Medication Instructions Date of Service January 20, 2021 Home Medications Medication Instructions Recorded atorvastatin 20 mg tablet 20 mg PO HS #90 tab 06/02/20 omeprazole 40 mg capsule,delayed 40 mg PO QAM #90 cap 07/06/20 release montelukast 10 mg tablet 10 mg PO QPM #90 tab 07/28/20 celecoxib 200 mg capsule 200 mg PO BID #180 cap 08/26/20 lisinopril 20 mg tablet 20 mg PO BID #180 tab 10/07/20 hydrochlorothiazide 25 mg tablet 25 mg PO QAM #90 tab 11/03/20 metformin 500 mg 24 hr 500 mg PO BID #180 tab 12/07/20 tablet,extended release ascorbic acid (vitamin C) 1,000 mg tablet,extended release (Vitamin C ER) 1,000 mg PO QAM multivitamin 1 tab PO QAM omega 1-xyz-asg-fish oil 1,000 mg (120 mg-180 mg) capsule (Fish Oil) 1 cap PO BID ferrous sulfate 142 mg (45 mg iron) tablet,extended release (Slow Fe) 142 mg PO BID vitamin B complex-folic acid 0.4 mg tablet (Super B Maxi Complex) 1 tab PO HS atorvastatin 20 mg tablet 20 mg PO HS omeprazole 40 mg capsule,delayed release 40 mg PO QAM montelukast 10 mg tablet 10 mg PO QPM celecoxib 200 mg capsule 200 mg PO BID lisinopril 20 mg tablet 20 mg PO BID hydrochlorothiazide 25 mg tablet 25 mg PO QAM albuterol sulfate 90 mcg/actuation aerosol inhaler (Ventolin HFA) 1 - 2 puff INHALATION .Q4-6H PRN metformin 500 mg 24 hr tablet,extended release 500 mg PO BID levothyroxine 100 mcg tablet 88 mcg PO QAM ASK your surgeon for instructions celecoxib 200 mg capsule 200 mg PO BID STOP taking 2 weeks before surgery omega 7-ara-nzr-fish oil 1,000 mg (120 mg-180 mg) capsule (Fish Oil) 1 cap PO BID DO NOT take the morning of surgery ascorbic acid (vitamin C) 1,000 mg tablet,extended release (Vitamin C ER) 1,000 mg PO QAM multivitamin 1 tab PO QAM ferrous sulfate 142 mg (45 mg iron) tablet,extended release (Slow Fe) 142 mg PO BID lisinopril 20 mg tablet 20 mg PO BID hydrochlorothiazide 25 mg tablet 25 mg PO QAM metformin 500 mg 24 hr tablet,extended release 500 mg PO BID Take morning of surgery With a small sip of water, OTHERWISE NOTHING TO EAT OR DRINK AFTER MIDNIGHT: omeprazole 40 mg capsule,delayed release 40 mg PO QAM albuterol sulfate 90 mcg/actuation aerosol inhaler (Ventolin HFA) 1 - 2 puff INHALATION .Q4-6H PRN (use if needed; please bring with you to hospital day of surgery if possible) levothyroxine 100 mcg tablet 88 mcg PO QAM Take evening before surgery ferrous sulfate 142 mg (45 mg iron) tablet,extended release (Slow Fe) 142 mg PO BID vitamin B complex-folic acid 0.4 mg tablet (Super B Maxi Complex) 1 tab PO HS atorvastatin 20 mg tablet 20 mg PO HS montelukast 10 mg tablet 10 mg PO QPM lisinopril 20 mg tablet 20 mg PO BID albuterol sulfate 90 mcg/actuation aerosol inhaler (Ventolin HFA) 1 - 2 puff INHALATION .Q4-6H PRN (if needed) metformin 500 mg 24 hr tablet,extended release 500 mg PO BID Other Notes If you have any questions please call us at [phone] or [phone] or [phone] or [phone]
--- NOTE | 2021-01-25 13:00 | Anesthesiology Consultation ---
Date of Service January 25, 2021 Assessment & Plan (1) Encounter for pre-operative examination: Chart Review Chart Review: Acceptable Risk for Surgery (pending cardio clearance 02/08, most recent pacer check and preop Covid testing results ) and Patient seen in Pre Admission Testing Awaiting cardio clearance scheduled 02/08/21 Awaiting most recent pacemaker check - Check BSG AM DOS -Did inform OR office and marked on OR notification form that pacemaker rep needs to be present DOS (pacemaker noted to left chest wall- patient scheduled for left TSA) Per PAT appt on 01/25/21, patient did travel to [facility] 01/15/21 to 01/16/21 for [employer]- did wear mask. No known Covid positive contacts or Covid related symptoms. No known Covid infection in the past 90 days. Pt is vaccinated for Covid. Preop Covid testing scheduled 02/18/21 = will await results. 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 No chemo felt needed per oncologywe will continue with surveillance. Patient doing well and has recovered well since s urgery. Chest CT completed 01/12/2021final report still pending but per preliminary reviewno new or suspicious pulmonary nodules. No significant adenopathy changes appreciated. We will follow-up in 7 months. Teaching & Discussion Pre-Anesthesia Teaching/Discussion Notes: Instructed NPO after midnight before surgery,except medications with 15 cc of water. Medication instructions provided according to the PAT guidelines. History Surgery Operation Date: 02/22/21 07:00 Proposed Procedures p Left Reverse Total Shoulder Arthroplasty - Cruzito Thomas DO Height/Weight Height: 4 ft 11 in Weight: 63.5 kg Allergies Allergy/AdvReac Type Severity Reaction Status Date / Time nickel Allergy Mild Rash Verified 01/19/21 08:26 oxycodone Allergy Mild GI UPSET Verified 01/19/21 08:26 tramadol Allergy Mild Nausea Verified 01/19/21 08:26 Medications Home Medications Medication Instructions Recorded Confirmed Last Taken ascorbic acid (vitamin C) 1,000 mg 1,000 mg PO QAM 10/30/18 09/28/21 08/06/21 tablet,extended release (Vitamin C ER) multivitamin 1 tab PO QAM 02/20/18 01/19/21 11/27/20 omega 4-sqw-nvd-fish oil 1,000 mg 1 cap PO BID 02/20/18 01/19/21 11/27/20 08:00 (120 mg-180 mg) capsule (Fish Oil) ferrous sulfate 142 mg (45 mg 142 mg PO BID 10/28/19 01/19/21 11/27/20 08:00 iron) tablet,extended release (Slow Fe) vitamin B complex-folic acid 0.4 1 tab PO HS 10/28/19 01/19/21 11/26/20 mg tablet (Super B Maxi Complex) atorvastatin 20 mg tablet 20 mg PO HS #90 tab 06/02/20 01/19/21 11/26/20 omeprazole 40 mg capsule,delayed 40 mg PO QAM #90 cap 07/06/20 01/19/21 11/27/20 release montelukast 10 mg tablet 10 mg PO QPM #90 tab 07/28/20 01/19/21 11/26/20 celecoxib 200 mg capsule 200 mg PO BID #180 cap 08/26/20 01/19/21 11/27/20 08:00 lisinopril 20 mg tablet 20 mg PO BID #180 tab 10/07/20 01/19/21 11/27/20 08:00 hydrochlorothiazide 25 mg tablet 25 mg PO QAM #90 tab 11/03/20 01/19/21 11/27/20 albuterol sulfate 90 mcg/actuation 1 - 2 puff INHALATION .Q4-6H PRN 11/27/20 01/19/21 Unknown aerosol inhaler (Ventolin HFA) metformin 500 mg 24 hr 500 mg PO BID #180 tab 12/07/20 01/19/21 Unknown tablet,extended release levothyroxine 100 mcg tablet 88 mcg PO QAM 01/19/21 01/19/21 Unknown Past Medical History Medical History Diabetes mellitus, type 2 NIDDM Glucose well controlled and stable GERD (gastroesophageal reflux disease) CONTROLLED Hiatal hernia Hyperlipidemia Hypertension Hypothyroidism 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 Total tumor size 2.2 x 2.1 x 1.8 cm pathologic staging pT1c N0, stage IA3 large cell neuroendocrine carcinoma No chemo or XRT needed Obesity Osteoarthritis Pacemaker Medtronic- implanted 2014 Palpitations No recent issues Restless leg syndrome Spinal stenosis Exercise / Class Metabolic Activity II 4-5 Yardwork/Stairs/Walk up hill (ONE FLIGHT OF STAIRS- NO CHEST PAIN OR SOB ) Past Family History Family History Mother Family hx of colon cancer Diabetes Family history of diabetes mellitus Pure hypercholesterolemia Colorectal cancer Endometriosis Hypertension Sister Family history of diabetes mellitus Hypothyroidism Grandfather (Maternal) Diabetes Family history of diabetes mellitus maternal Son Cystic fibrosis Daughter Hypothyroidism Cystic fibrosis Uncle Diabetes Father Pure hypercholesterolemia Hypertension Other No family history of adverse response to anesthesia Denies family history of Ovarian cancer Prostate cancer Myocardial infarction Breast cancer Past Surgical History Surgical History History of anesthesia reaction LOW BP [place] [facility] [place] History of bilateral knee replacement History of cataract surgery BILAT History of colon surgery History of colonoscopy with polypectomy History of dilatation and curettage History of esophagogastroduodenoscopy (EGD) History of lumbar laminectomy (~04/2018) L3-S1, decompression/fusion History of repair of left rotator cuff 09/2017= LEFT SHOULDER SCOPE= 10/10/17= GRADE VIEW 2, MAC 3, ETT 7.0 AT [facility] History of tonsillectomy History of tooth extraction WISDOM TEETH History of total abdominal hysterectomy and bilateral salpingo-oophorectomy History of tubal ligation Pacemaker MEDTR[employer]IC IMPLANTED 05/26 AVB/ KIP RAVI LAST PACER CHECK 12/09/2020 S/P bronchoscopy S/P LASIK surgery of both eyes S/P lobectomy of lung [place] [facility] [place] CHEMO/NO RADIATION Status post left foot surgery BUNIONECTOMY Past Anesthesia History No Hx of Anesthesia Complications (WITH EXCEPTION TO LOW BP WITH LUNG LOBECTOMY SURGERY IN APR 2020 ([facility] NO KNOWN ISSUES WITH ALL OTHER SURGERIES) and No Family Hx of Anesthesia Complications History of PONV No Hx of PONV and Hx of Motion Sickness Social History Smoking Status: Current every day smoker tobacco type: cigarettes Smoking cigarettes per day: 15 CIGS A DAY Do You Dip or Chew Tobacco: No Hx Alcohol Use: No Hx Substance Use: No Review of Systems Mild cough- intermittent dry/productive- did get booster shot for Covid last week in Dec - cough improving Patient denies chest pain, shortness of breath, dyspnea on exertion, wheezing, palpitations. No hx of seizures, stroke, [place], apnea/snoring. No hx of blood clots or blood transfusions Physical Exam Vital Signs VITALS BP 104/66 (manually) P 62 TEMP 98.4 SP02 97% RESP 16 Constitutional no acute distress ENMT Mouth: no TMJ clicking Thyromental Distance: < 3.5 Finger Breadths (3.0) Mallampati Class: III Missing molar Neck neck extension not limited Respiratory normal respiratory effort; no respiratory distress Auscultation: lungs clear to auscultation bilaterally; no wheezes Cardiovascular Rate/Rhythm: regular rate and regular rhythm Heart Sounds: + murmur (II/ murmur) Vessels: no carotid bruit Musculoskeletal Spine: no pain with cervical ROM Extremities: extremities normal to inspection Psychiatric Orientation: alert Lab Results Anesthesia Preop Results Results Anesthesia Widget: WBC 8.06 K/uL (4.8-10.8) 01/25/21 Hgb 15.9 g/dL (12.0-16.0) 01/25/21 Hct 45.2 % (37-47) 01/25/21 Plt 286 K/uL (130-400) 01/25/21 Na 139 mmol/L (136-145) 01/25/21 K 3.8 mmol/L (3.5-5.1) 01/25/21 Cl 102 mmol/L (98-107) 01/25/21 CO2 26 mmol/L (21-32) 01/25/21 BUN 25 mg/dl (7-18) H 01/25/21 Creat 1.24 mg/dl (0.6-1.2) H 01/25/21 Glucose Level 123 mg/dl (70-99) H 01/25/21 PT 10.5 Seconds (9.0-12.0) 01/25/21 PTT 28.2 Seconds (21.0-31.0) 01/25/21 INR 1.0 (0.9-1.1) 01/25/21 TSH 2.100 uIu/ml (0.300-4.500) 11/30/20 HA1c 6.4 % (4.5-5.6) H 01/25/21 Blood Type A Positive 01/25/21 Antibody Screen NEGATIVE 01/25/21 Testing Electrocardiogram Date: 01/25/21 AV dual-paced rhythm with prolonged AV conduction at 65bpm Chest X-Ray Date: 01/25/21 Findings: + NAD Stable appearance of dual-lead pacemaker. Previously noted nodular density in the right upper lobe is no longer visualized status post right upper lobectomy. Echocardiogram Date: 03/24/20 EF: 60-65% LV Function: normal RWMA: + none Other Findings: + LVH (mild/concentric ) and + diastolic dysfunction (Grade I ) Discrete nodular thickening of left coronary cusp. Mild aortic sclerosis- no significant aortic stenosis Abnormal (paradoxical) septal motion consistent with RV pacemaker. Moderate mitral annular calcification. Focally calcified leaflets Pulmonary Function Test Date: 09/11/20 Spirometry shows a mild obstructive ventilatory defect. There is no spirometric restriction. There was no significant response to bronchodilators. Diffusion capacity is mildly impaired. Lung volumes are normal. Resting room air SPO2 is 95%.
--- NOTE | 2021-08-04 10:48 | Anesthesiology Consultation ---
Date of Service August 04, 2021 Assessment & Plan (1) Encounter for pre-operative examination: Chart Review Chart Review: Acceptable Risk for Surgery and Patient NOT seen in Pre Admission Testing -Will leave to anesthesiologist discretion DOS if coags needed - Check BSG AM DOS -Did inform OR office and marked on OR notification form that pacemaker rep needs to be present DOS (pacemaker noted to left chest wall- patient scheduled for left TSA) Per nursing assessment 08/03/21, patient denies any recent travel. No known Covid positive exposures or Covid related symptoms. Pt did test Covid positive on 06/15/21 (had cough, SOB, difficulty breathing)- symptoms have since resolved. Pt is fully vaccinated for Covid. Preop Covid testing scheduled 08/04/21= will await results. If patient tests Covid positive- she can proceed as scheduled without additional Covid contact precautions due to 90 days Covid protocol. Seen by EP 02/08/21=Dual-chamber pacemakernormal function. Presyncopesymptoms resolved since implantation of pacemakerpresumably due to bradycardia. AV blockventricular pacing 100%. 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 "I do not believe there is any concerns regarding her upcoming shoulder surgery. She is pacemaker dependent, and will require either magnet application or, given the location of her surgery, reprogramming of the device to a non sensing mode if electrocautery is used. No Special precautions from a cardiac standpoint. 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 No chemo felt needed per oncologywe will continue with surveillance. Patient doing well and has recovered well since surgery. Chest CT completed 01/12/2021final report still pending but per preliminary reviewno new or suspicious pulmonary nodules. No significant adenopathy changes appreciated. We will follow-up in 7 months. History Surgery Operation Date: 05/24/21 07:00 Proposed Procedures p Left Reverse Total Shoulder Arthroplasty - Cruzito Thomas DO Operation Date: 08/06/21 12:20 Proposed Procedures p Left Reverse Total Shoulder Arthroplasty - Cruzito Thomas DO Height/Weight Height: 4 ft 11 in Weight: 68.039 kg Allergies Allergy/AdvReac Type Severity Reaction Status Date / Time nickel Allergy Mild Rash Verified 08/03/21 15:16 oxycodone Allergy Mild GI UPSET Verified 08/03/21 15:16 tramadol Allergy Mild Nausea Verified 08/03/21 15:16 Medications Home Medications Medication Instructions Recorded Confirmed Last Taken ascorbic acid (vitamin C) 1,000 mg 1,000 mg PO QAM 02/20/18 08/03/21 11/27/20 tablet,extended release (Vitamin C ER) multivitamin 1 tab PO QAM 02/20/18 08/03/21 11/27/20 omega 2-klw-esl-fish oil 1,000 mg 1 cap PO BID 02/20/18 08/03/21 11/27/20 08:00 (120 mg-180 mg) capsule (Fish Oil) ferrous sulfate 142 mg (45 mg 142 mg PO BID 10/28/19 08/03/21 11/27/20 08:00 iron) tablet,extended release (Slow Fe) vitamin B complex-folic acid 0.4 1 tab PO BID 10/28/19 08/03/21 11/26/20 mg tablet (Super B Maxi Complex) albuterol sulfate 90 mcg/actuation 1 - 2 puff INHALATION .Q4-6H PRN 11/27/20 08/03/21 Unknown aerosol inhaler (Ventolin HFA) metformin 500 mg 24 hr 500 mg PO BID #180 tab 12/07/20 08/03/21 Unknown tablet,extended release atorvastatin 20 mg tablet 20 mg PO HS #90 tab 03/01/21 08/03/21 Unknown celecoxib 200 mg capsule 200 mg PO BID #180 cap 03/01/21 08/03/21 Unknown omeprazole 40 mg capsule,delayed 40 mg PO QAM #90 cap 03/08/21 08/03/21 Unknown release lisinopril 20 mg tablet 20 mg PO BID #180 tab 04/05/21 08/03/21 Unknown hydrochlorothiazide 25 mg tablet 25 mg PO QAM #90 tab 04/26/21 08/03/21 Unknown montelukast 10 mg tablet 10 mg PO QPM #90 tab 04/26/21 08/03/21 Unknown benzonatate 100 mg capsule 100 mg PO TID PRN #30 cap 04/27/21 08/03/21 Unknown levothyroxine 88 mcg tablet 88 mcg PO QAM 05/14/21 08/03/21 Unknown Past Medical History Medical History Diabetes mellitus, type 2 NIDDM Glucose well controlled and stable GERD (gastroesophageal reflux disease) CONTROLLED Hiatal hernia History of COVID-19 Diagnosed 06/15/[address] [facility]--cough, shortness of breath, difficulty breathing, put on oral steroid--no further issues Hyperlipidemia Hypertension Hypothyroidism Large cell neuroendocrine carcinoma Lobectomy at [facility] on 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 Total tumor size 2.2 x 2.1 x 1.8 cm pathologic staging pT1c N0, stage IA3 large cell neuroendocrine carcinoma No chemo or XRT needed Obesity Osteoarthritis Pacemaker Medtronic- implanted 2014 Palpitations No recent issues Restless leg syndrome Spinal stenosis Past Family History Family History Mother Family hx of colon cancer Diabetes Family history of diabetes mellitus Pure hypercholesterolemia Colorectal cancer Endometriosis Hypertension Sister Family history of diabetes mellitus Hypothyroidism Grandfather (Maternal) Diabetes Family history of diabetes mellitus maternal Son Cystic fibrosis Daughter Hypothyroidism Cystic fibrosis Uncle Diabetes Father Pure hypercholesterolemia Hypertension Other No family history of adverse response to anesthesia Denies family history of Ovarian cancer Prostate cancer Myocardial infarction Breast cancer Past Surgical History Surgical History (Updated 08/04/21 @ 10:46 by Do Alvarado PA-C) History of anesthesia reaction LOW BP [place] [facility] [place] History of bilateral knee replacement History of cataract surgery BILAT History of colon surgery History of colonoscopy with polypectomy History of dilatation and curettage History of esophagogastroduodenoscopy (EGD) History of lumbar laminectomy (~04/2018) L3-S1, decompression/fusion History of repair of left rotator cuff 09/2017= LEFT SHOULDER SCOPE= 10/10/17= GRADE VIEW 2, MAC 3, ETT [address] [facility] History of tonsillectomy History of tooth extraction WISDOM TEETH History of total abdominal hysterectomy and bilateral salpingo-oophorectomy History of tubal ligation Pacemaker MEDTRONIC IMPLANTED 05/26 AVB/ KIP RAVI LAST PACER CHECK 04/2021 S/P bronchoscopy S/P LASIK surgery of both eyes S/P lobectomy of lung [place] [facility] [place] NO CHEMO/NO RADIATION Status post left foot surgery BUNIONECTOMY Social History Smoking Status: Current every day smoker tobacco type: cigarettes Smoking cigarettes per day: 10 a day (advised) Do You Dip or Chew Tobacco: No Hx Alcohol Use: No Hx Substance Use: No substance use type: does not use Lab Results Anesthesia Preop Results Results Anesthesia Widget: WBC 9.11 K/uL (4.8-10.8) 06/15/21 Hgb 14.8 g/dL (12.0-16.0) 06/15/21 Hct 43.6 % (37-47) 06/15/21 Plt 285 K/uL (130-400) 06/15/21 Na 139 mmol/L (136-145) 06/15/21 K 4.3 mmol/L (3.5-5.1) 06/15/21 Cl 107 mmol/L (98-107) 06/15/21 CO2 26 mmol/L (21-32) 06/15/21 BUN 21 mg/dl (6-23) 06/15/21 Creat 1.09 mg/dl (0.6-1.2) 06/15/21 Glucose Level 79 mg/dl (70-99(Fasting)) 06/15/21 SARS-CoV-2, RNA, NAAT POSITIVE (NEGATIVE) A* 06/15/21 Testing Electrocardiogram Date: 06/15/21 AV dual-paced rhythm with prolonged AV conduction at 62bpm. Chest X-Ray Date: 06/15/21 Findings: + NAD FINDINGS: Left subclavian pacer. Cardiomediastinal and hilar silhouettes are unchanged. Emphysema. Postoperative changes of the right lung. No pneumothorax, large pleural effusion or overt pulmonary edema. Unchanged blunting of the lateral right costophrenic angle. Atherosclerotic plaque of the thoracic aorta. Healed chronic fracture of the posterolateral right seventh rib.. Degenerative changes of the shoulders and spine. IMPRESSION: 1. Emphysema without acute process. 2. Prior right-sided pulmonary resection. Echocardiogram Date: 03/24/20 EF: 60-65% LV Function: normal RWMA: + none Other Findings: + LVH (mild/concentric ) and + diastolic dysfunction (Grade I ) Discrete nodular thickening of left coronary cusp. Mild aortic sclerosis- no significant aortic stenosis Abnormal (paradoxical) septal motion consistent with RV pacemaker. Moderate mitral annular calcification. Focally calcified leaflets Pulmonary Function Test Date: 09/11/20 Spirometry shows a mild obstructive ventilatory defect. There is no spirometric restriction. There was no significant response to bronchodilators. Diffusion capacity is mildly impaired. Lung volumes are normal. Resting room air SPO2 is 95%. Other Testing Pacemaker check 05/06/21= Medtronic pacemaker. Normal parameters noted on batter and leads. Presenting rhythm Atrial Pacing- Ventricular Pacing. AT/AF burden <0.1% totaling 6 seconds. No EMGs or episode details available for review. Histograms illustrate heart rates are distributed, predominantly 60-100bpm. 100% RV pacing. (AP: 72.21%; AP: 99.95%).
--- NOTE | 2021-08-05 09:04 | History & Physical Report ---
Date of Service August 05, 2021 Assessment & Plan (1) Rotator cuff arthropathy of left shoulder: We will proceed with a left reverse shoulder arthroplasty. Postoperatively she will be placed in a sling and kept overnight for postoperative medical management. She plans to use energy physical therapy upon discharge. History of Present Illness Chief Complaint: Cuff tear arthropathy of the left shoulder Primary Care Provider: Angel Tapia, III, YULY Govind Sharma is a pleasant 70-year-old female who has been dealing with chronic increasing left shoulder pain and weakness. I did a large rotator cuff repair on her back in 2018. She initially did well but over the past few years she has slowly developed more more pain. X-rays and clinical examination have been diagnostic for cuff arthropathy of the left shoulder. 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 After failing extensive conservative treatment, she elected proceed with a left reverse shoulder arthroplasty. Allergies Allergy/AdvReac Type Severity Reaction Status Date / Time nickel Allergy Mild Rash Verified 08/03/21 15:16 oxycodone Allergy Mild GI UPSET Verified 08/03/21 15:16 tramadol Allergy Mild Nausea Verified 08/03/21 15:16 Home Medications Medication Instructions Recorded Confirmed Type ascorbic acid (vitamin C) 1,000 mg 1,000 mg PO QAM 02/20/18 08/03/21 History tablet,extended release (Vitamin C ER) multivitamin 1 tab PO QAM 02/20/18 08/03/21 History omega 8-bev-spm-fish oil 1,000 mg 1 cap PO BID 02/20/18 08/03/21 History (120 mg-180 mg) capsule (Fish Oil) ferrous sulfate 142 mg (45 mg 142 mg PO BID 10/28/19 08/03/21 History iron) tablet,extended release (Slow Fe) vitamin B complex-folic acid 0.4 1 tab PO BID 10/28/19 08/03/21 History mg tablet (Super B Maxi Complex) albuterol sulfate 90 mcg/actuation 1 - 2 puff INHALATION .Q4-6H PRN 11/27/20 08/03/21 History aerosol inhaler (Ventolin HFA) metformin 500 mg 24 hr 500 mg PO BID #180 tab 12/07/20 08/03/21 Rx tablet,extended release atorvastatin 20 mg tablet 20 mg PO HS #90 tab 03/01/21 08/03/21 Rx celecoxib 200 mg capsule 200 mg PO BID #180 cap 03/01/21 08/03/21 Rx omeprazole 40 mg capsule,delayed 40 mg PO QAM #90 cap 03/08/21 08/03/21 Rx release lisinopril 20 mg tablet 20 mg PO BID #180 tab 04/05/21 08/03/21 Rx hydrochlorothiazide 25 mg tablet 25 mg PO QAM #90 tab 04/26/21 08/03/21 Rx montelukast 10 mg tablet 10 mg PO QPM #90 tab 04/26/21 08/03/21 Rx benzonatate 100 mg capsule 100 mg PO TID PRN #30 cap 04/27/21 08/03/21 Rx levothyroxine 88 mcg tablet 88 mcg PO QAM 05/14/21 08/03/21 History Past Med/Surg History Medical History Diabetes mellitus, type 2 NIDDM Glucose well controlled and stable GERD (gastroesophageal reflux disease) CONTROLLED Hiatal hernia History of COVID-19 Diagnosed 06/15/21 @ [facility]--cough, shortness of breath, difficulty breathing, put on oral steroid--no further issues Hyperlipidemia Hypertension Hypothyroidism Large cell neuroendocrine carcinoma Lobectomy at [facility] on 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 Total tumor size 2.2 x 2.1 x 1.8 cm pathologic staging pT1c N0, stage IA3 large cell neuroendocrine carcinoma No chemo or XRT needed Obesity Osteoarthritis Pacemaker Medtronic- implanted 2014 Palpitations No recent issues Restless leg syndrome Spinal stenosis Surgical History History of anesthesia reaction LOW BP [place] [facility] [place] History of bilateral knee replacement History of cataract surgery BILAT History of colon surgery History of colonoscopy with polypectomy History of dilatation and curettage History of esophagogastroduodenoscopy (EGD) History of lumbar laminectomy (~04/2018) L3-S1, decompression/fusion History of repair of left rotator cuff 09/2017= LEFT SHOULDER SCOPE= 10/10/17= GRADE VIEW 2, MAC 3, ETT 7.0 AT [facility] History of tonsillectomy History of tooth extraction WISDOM TEETH History of total abdominal hysterectomy and bilateral salpingo-oophorectomy History of tubal ligation Pacemaker MEDTRONIC IMPLANTED 05/26 AVB/ KIP RAVI LAST PACER CHECK 04/2021 S/P bronchoscopy S/P LASIK surgery of both eyes S/P lobectomy of lung [place] [facility] [place] NO CHEMO/NO RADIATION Status post left foot surgery BUNIONECTOMY Family History Mother Family hx of colon cancer Diabetes Family history of diabetes mellitus Pure hypercholesterolemia Colorectal cancer Endometriosis Hypertension Sister Family history of diabetes mellitus Hypothyroidism Grandfather (Maternal) Diabetes Family history of diabetes mellitus maternal Son Cystic fibrosis Daughter Hypothyroidism Cystic fibrosis Uncle Diabetes Father Pure hypercholesterolemia Hypertension Other No family history of adverse response to anesthesia Denies family history of Ovarian cancer Prostate cancer Myocardial infarction Breast cancer Social History Smoking Status: Current every day smoker Tobacco Type: Cigarettes Age Started Using Tobacco: 32; Cigarettes Per Day: 10 a day (advised); Second Hand Exposure: No; Hx Alcohol Use: No Hx Substance Use: No Preferred Language: Greek Communication Ability: Effective Visual Impairment: No Limitations Hearing Ability: Normal Objects Conservator Required: No Beliefs That Will Affect Care: None marital status: Current Living Situation: Spouse current occupational status: retired Feels Safe at Home: Yes Childhood Exposure to Second-Hand Smoke: Yes Dental Care, Regularly: No Physical Activity Frequency: 1-2 Times per Week Seatbelt Use: always Sunscreen Use: Yes Assistive Devices: Glasses Review of Systems All systems reviewed & are unremarkable except as noted in HPI & below. Physical Exam On physical examination of the left shoulder, she has about 80 degrees forward elevation 80 degrees of abduction. She has tenderness to palpation throughout the entire joint line. She has 4 out of 5 motor strength with full can testing and external rotation. Constitutional WD/WN, vitals as above Eyes PERRL, conjunctivae normal, anicteric sclerae ENMT external ear and nose normal, oropharynx normal Neck trachea midline, no thyromegaly Respiratory normal respiratory effort Cardiovascular RRR, no murmur, no edema Gastrointestinal (Abdomen) normal bowel sounds, soft, nontender, no hepatosplenomegaly Psychiatric A+Ox3, euthymic affect Results & Data Results & Data Laboratory Results . Diagnostic Findings X-rays of the left shoulder show signs of cuff arthropathy with some superior migration of the humeral head on the glenoid and osteoarthritis of the glenohumeral joint. PG Care Time/CCT Total # of Minutes Spent Total Time Spent with Patient: Total time spent is greater than 50% in coordination of care (as documented) at patient's floor/unit and/or counseling patient: Coding Level of Care Code None Diagnoses Rotator cuff arthropathy of left shoulder M12.812
[~2021-08-06 11:24] MED LIST changes: +ACETAMINOPHEN 500 MG TAB PO SCH; -CEFAZOLIN 2000MG 2,000 MG/15 ML SYR IV SCH; +FAMOTIDINE 20 MG TAB PO SCH; +GABAPENTIN 300 MG CAP PO SCH; -LACTATED RINGER'S 1,000 ML IV SCH; +LR 15ML/HR IV SCH; +LR 60ML/HR IV SCH; -SODIUM CHLORIDE 0.9% 1000ML IV SCH; +TRANEXAMIC ACID 1,000 MG **IV Intra-op IV SCH; +TRANEXAMIC ACID 1,000 MG **IV Pre-op IV SCH; +ceFAZolin 2000MG 2,000 MG/15 ML SYR IV SCH; +dexAMETHasone 4 MG TAB PO SCH
[2021-08-06] MEDS ORDERED: Ketorolac (*for OR use only*) 30 MG, dexAMETHasone 4 MG, KETAMINE HCL (**OR use only) 1... INFIL SCH (12:20)
--- NOTE | 2021-08-06 12:46 | History & Physical Bridge Note ---
Date of Service August 06, 2021 History & Physical Bridge Note I have examined the patient, reviewed the History & Physical and in the interval since the performance of the History & Physical I have noted the following changes of clinical significance: no changes noted
[2021-08-06] MEDS ORDERED: fentaNYL citrate 100 MCG/2 ML VIAL ONE (13:24)
[2021-08-06] MEDS ORDERED: MIDAZOLAM HCL 1 MG/ML 2ML VIAL ONE (13:24)
[2021-08-06] MEDS ORDERED: ONDANSETRON INJ 2 MG/ML 2 ML VIAL ONE (13:27)
[2021-08-06] MEDS ORDERED: PROPOFOL IV EMULSION 10 MG/ML 20 ML VIAL IV ONE (13:27)
[2021-08-06] MEDS ORDERED: DEXAMETHASONE SOD INJ 4 MG/ML VIAL ONE (13:27)
[2021-08-06] MEDS ORDERED: LIDOCAINE 2% 2 ML VIAL/AMP(20MG/ML) INFIL ONE (13:27)
[2021-08-06] MEDS ORDERED: ROCURONIUM BROMIDE 10 MG/ML 5 ML VIAL IV ONE (14:11)
[2021-08-06] MEDS ORDERED: ePHEDrine sulfate 50 MG/ML AMP ONE (14:41)
[2021-08-06] MEDS ORDERED: PHENYLEPHRINE HCL 10 MG/ML VIAL ONE (14:41)
[2021-08-06] MEDS ORDERED: WATER, STERILE FOR INJ 10 ML VIAL ONE (14:41)
[2021-08-06] MEDS ORDERED: ePHEDrine sulfate 50 MG/ML AMP IV PRN (14:52)
[2021-08-06] MEDS ORDERED: PROMETHAZINE HCL 6.25 MG in SODIUM CHLORIDE 0.9% 50 ML IV PRN (14:52)
[2021-08-06] MEDS ORDERED: ATROPINE SULFATE 0.1 MG/ML 10ML SYR IV PRN (14:52)
[2021-08-06] MEDS ORDERED: ONDANSETRON INJ 2 MG/ML 2 ML VIAL IV PRN ×2 (14:52→16:33)
[2021-08-06] MEDS ORDERED: fentaNYL citrate 100 MCG/2 ML VIAL IV PRN (14:52)
--- NOTE | 2021-08-06 15:22 | Operative Report ---
PG Post Operative Report Pre & Post Diagnosis Operation Date: 05/24/21 07:00 Operative diagnosis: Rotator cuff tear arthropathy of the left shoulder Postoperative diagnosis: Rotator cuff tear arthropathy of the left shoulder Operation Date: 08/06/21 14:00 <No data on this case meets the specified criteria> I identified the patient and participated in the time-out.: Yes Procedure Operation Date: 05/24/21 07:00 Left reverse shoulder arthroplasty Operation Date: 08/06/21 14:00 <No data on this case meets the specified criteria> Surgeon Cruzito Thomas DO Registration Scheduling Specialist Cruzito Clayton PAC Estimated Blood Loss 100 Findings Consistent with Post-Op Diagnosis Specimens Left humeral head Complications none Disposition Disposition: Recovery Room Indications The patient is a pleasant 71-year-old female who underwent a left rotator cuff repair in 2018. She initially did well but then it became worse. MRI and clinical examination were diagnostic for complete retear of the rotator cuff. After failing conservative treatment, she elected proceed with a left reverse shoulder arthroplasty. Description of Procedure Implants used: I used a [employer]omet Comprehensive reverse total shoulder arthroplasty system with a size 7 press fit micro humeral stem, a standard humeral tray and a standard humeral bearing, a 25 mm small augment baseplate with a 6.5 mm central screw and superior and inferior locking screws, and a size 36 mm eccentric glenosphere. Govind arrived at [facility] for the above procedure. She was seen in the preoperative holding area and the operative extremity was identified and signed. She was given a preoperative antibiotic, TXA, and an interscalene nerve block. She was taken back to the operating room, laid on table in supine position, and put under general anesthesia. She was then put into the beachchair position. The shoulder was then prepped and draped in sterile fashion. A timeout was done and the patient and the operative extremity was properly identified. A deltopectoral approach was used. Dissection was taken down through the fascia and the deltoid was retracted laterally and the conjoined tendon was retracted medially. The anterior shoulder was exposed. The biceps tendon was absent from a previous tenotomy. The subscapularis was then directly released off the lesser tuberosity with a peel technique. The inferior capsule was released and the humeral head was dislocated. A canal finding reamer was sent down the center of the humeral canal. Sequential reaming up to a size 7 reamer was done. Off that reamer, a proximal humeral resection guide was placed. The proximal humerus was resected at 135 of inclination and 25 of retroversion. Osteophytes were then removed and the glenoid was exposed. Time was spent doing a complete capsular and labral release. The glenoid guide was then placed in the inferior aspect of the glenoid. A 3.2 mm Steinmann pin was then placed into the glenoid vault at 10 of inclination. The glenoid baseplate was then reamed. The final size 25 mm small augment baseplate was then impacted in the place. A 6.5 mm central screw was then placed followed by superior and inferior locking screws. A 36 eccentric glenosphere was then impacted into place. Surrounding soft tissues were then injected with 100 cc an orthopedic pain control cocktail. The proximal humerus was then exposed. Sequential broaching of the humerus up to a size 7 broach was done. Off that broach a standard humeral tray was trialed. The shoulder was then reduced, brought through a full range of motion, and felt to be stable. The shoulder was then dislocated and the broach was removed. The final size 7 micro press-fit humeral stem was then impacted into place. A standard humeral bearing was then snapped onto a standard humeral tray. The humeral tray was then impacted onto the humeral stem. The shoulder was once again reduced, brought through a full range of motion, and felt to be stable. The subscapul renee was too contracted and not repairable. A dilute betadyne lavage was then done for 3 minutes. The joint was then irrigated with normal saline solution. Hemostasis was obtained. The interval was closed with 2-0 Vicryl suture. The skin was then closed with 2-0 Vicryl and valerio. A Silverlon dressing was placed and the arm was rested in a regular arm sling. She was then extubated and transferred to a hospital bed. She taken to the postanesthesia care unit in stable condition. She tolerated the procedure well. Cruzito Clayton PA-C, was present for the entire procedure. He was critical for patient positioning, prepping, draping, retraction exposure, wound closure and application of sterile dressing. I attest to the content of the Intraoperative Record and any orders documented therein. Any exceptions are noted below.
--- NOTE | 2021-08-06 16:11 | XRay Report ---
XR shoulder LT min 2V routine HISTORY: 71 years-old Female Post shoulder surgery left shoulder total joint arthroplasty COMPARISON: Chest radiograph 06/15/2021 TECHNIQUE: 2 views of the left shoulder FINDINGS: Reverse left shoulder total joint arthroplasty with overlying valerio and expected postoperative soft tissue swelling with deep tissue air. Satisfactory alignment. No acute fracture or unexpected opaque foreign body. Left subclavian pacer. Cardiomegaly. IMPRESSION: Reverse left shoulder total joint arthroplasty with expected postoperative changes. ACT 112: Negative or not required by law. The above report was generated using voice recognition software. It may contain grammatical, syntax o r spelling errors. Electronically signed by: Dony Frederick M.D. 08/06/2021 4:09 PM
--- NOTE | 2021-08-06 16:23 | Anesthesiology Progress Note ---
Date of Service August 06, 2021 Anesthesia Post Procedure Vital Signs Vital Signs: Temp Pulse Pulse Resp BP Pulse Ox 08/06/21 16:20 36.4 C L 69 20 115/72 97 08/06/21 16:10 36.4 C L 75 20 115/84 95 08/06/21 16:00 75 23 121/78 97 08/06/21 15:50 75 21 125/76 96 08/06/21 15:43 36.1 C L 75 16 136/79 99 08/06/21 12:07 36.9 C 71 18 116/60 97 Transfer of Care Handoff Completed per policy Notes Mental Status: alert / awake / arousable and participated in evaluation Patient Amnestic to Procedure: Yes Nausea / Vomiting: adequately controlled Pain: adequately controlled Airway Patency, RR, SpO2: stable & adequate BP & HR: stable & adequate Hydration State: stable & adequate Anesthetic Complications: no major complications apparent
[2021-08-06] MEDS ORDERED: HYDROmorphone INJ 0.5 MG/0.5 ML SYR IV PRN (16:33)
[2021-08-06] MEDS ORDERED: ALBUTEROL HFA 8 GM INHALER INH PRN (16:33)
[2021-08-06] MEDS ORDERED: MAGNESIUM HYDROXIDE SUSP 30 ML UDC PO PRN (16:33)
[2021-08-06] MEDS ORDERED: PHARMACY GLYCEMIC MGMT CONSULT PRN (16:33)
[2021-08-06] MEDS ORDERED: bisacodyL 10 MG SUPP PR PRN (16:33)
[2021-08-06] MEDS ORDERED: NALOXONE HCL 0.4 MG/1 ML VIAL/CARP IV PRN (16:33)
[2021-08-06] MEDS ORDERED: oxyCODONE HCL IR 5 MG TAB (IMMEDIATE RELEASE) PO PRN (16:33)
[2021-08-06] MEDS ORDERED: METOCLOPRAMIDE HCL INJ 5 MG/ML 2 ML VIAL IV PRN (16:33)
[2021-08-06] MEDS: SODIUM CHLORIDE 0.9% 1000ML 1,000 ML IV SCH (17:13)
[2021-08-06] MEDS ORDERED: CARBOHYDRATES FOR HYPOGLYCEMIA PO PRN (17:30)
[2021-08-06] MEDS ORDERED: GLUCAGON FOR INJ 1 MG VIAL IM PRN (17:30)
[2021-08-06] MEDS ORDERED: GLUCOSE 10 TABS/TUBE PO PRN (17:30)
[2021-08-06] MEDS ORDERED: GLUCOSE 40% GEL 15 GM TUBE PO PRN (17:30)
[2021-08-06] MEDS ORDERED: DEXTROSE 50% 50 ML SYRINGE IV PRN (17:30)
[2021-08-06] MEDS: INSULIN ASPART PER UNIT SC SCH ×3 (17:34→23:58)
[2021-08-06] MEDS ORDERED: NovoLIN-N (NPH) PER UNIT CHARGE SQ ONE (18:15)
[2021-08-06] MEDS: KETOROLAC TROMETHAMINE 15 MG/ML VIAL IV SCH ×2 (18:35→23:47)
[2021-08-06] MEDS: lisinopril 20 MG TAB PO SCH (20:53)
[2021-08-06] MEDS: FERROUS SULFATE 325 MG TAB PO SCH (20:54)
[2021-08-06] MEDS: DOCUSATE SODIUM 100 MG CAP PO SCH (20:55)
[2021-08-06] MEDS ORDERED: MONTELUKAST SODIUM 10 MG TABLET PO SCH (21:00)
[2021-08-06] MEDS ORDERED: ATORVASTATIN 20 MG TAB PO SCH (21:00)
[2021-08-06] MEDS ORDERED: SENNA 8.6 MG TAB PO SCH (21:00)
[2021-08-06] MEDS: ACETAMINOPHEN 500 MG TAB PO SCH (21:44)
[2021-08-06] MEDS: ceFAZolin 2000MG 2,000 MG/15 ML SYR IV SCH (21:45)
[2021-08-07] MEDS: SODIUM CHLORIDE 0.9% 1000ML 1,000 ML IV SCH (02:41)
[2021-08-07] MEDS: INSULIN ASPART PER UNIT SC SCH ×2 (03:57→08:58)
[2021-08-07] MEDS: ceFAZolin 2000MG 2,000 MG/15 ML SYR IV SCH (05:48)
[2021-08-07] MEDS: KETOROLAC TROMETHAMINE 15 MG/ML VIAL IV SCH (05:48)
[2021-08-07] MEDS: ACETAMINOPHEN 500 MG TAB PO SCH (05:50)
[2021-08-07] MEDS ORDERED: LEVOTHYROXINE SODIUM 88 MCG TABLET PO SCH (06:30)
--- NOTE | 2021-08-07 07:03 | Orthopedic Progress Note ---
Date of Service August 07, 2021 Assessment & Plan (1) Status post reverse total replacement of left shoulder: Overall she is doing fairly well. She is having any pain in the left shoulder. She will be seen by physical therapy today for ambulation and range of motion exercises. She can be discharged home later today. She will follow- up with orthopedics in 2 weeks. Katy Faust was seen and examined at bedside this morning. Overall she is doing very well. She denies any pain in the left shoulder. She was able to get some sleep last night. She has no complaints.. Review of Systems All systems reviewed & are unremarkable except as noted in HPI & below. Physical Exam On physical examination of the left shoulder, the nerve block is still in effect. She is wearing her sling as instructed. The dressing is clean and dry.. Results & Data Results & Data Laboratory Results . Diagnostic Findings Postoperative x-rays of the left shoulder show the prosthesis to be in anatomic alignment without any evidence of fracture, desiccation, or loosening. PG Care Time/CCT Total # of Minutes Spent Total Time Spent with Patient: Total time spent is greater than 50% in coordination of care (as documented) at patient's floor/unit and/or counseling patient: Coding Level of Care Code 89742 Post Operative Follow-Up Diagnoses Status post reverse total replacement of left shoulder Z96.612
--- NOTE | 2021-08-07 07:06 | Discharge Summary ---
Date of Service August 07, 2021 Admission HPI (Per Admitting) Govind Sharma is a pleasant 70-year-old female who has been dealing with chronic increasing left shoulder pain and weakness. I did a large rotator cuff repair on her back in 2018. She initially did well but over the past few years she has slowly developed more more pain. X-rays and clinical examination have been diagnostic for cuff arthropathy of the left shoulder. 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 After failing extensive conservative treatment, she elected proceed with a left reverse shoulder arthroplasty. Admission Exam (Per Admitting) On physical examination of the left shoulder, she has about 80 degrees forward elevation 80 degrees of abduction. She has tenderness to palpation throughout the entire joint line. She has 4 out of 5 motor strength with full can testing and external rotation. Principal Diagnosis Same as "Discharge Diagnosis" noted below under Discharge Instructions. Discharge Exam On physical examination of the left shoulder, the nerve block is still in effect. She is wearing her sling as instructed. The dressing is clean and dry.. Discharge Data Procedures Performed Operation Date: 05/24/21 07:00 <No data on this case meets the specified criteria> Operation Date: 08/06/21 14:00 Actual Procedures p Left Reverse Total Shoulder Arthroplasty(Left) - Cruzito Thomas DO Ordered Studies 08/06/21 05:00 US - OR guided needle placemen Routine Hospital Course (1) Status post reverse total replacement of left shoulder: On August 06, 2021 Govind arrived at [facility] and underwent a left reverse shoulder arthroplasty without complication. She had a general anesthetic and a left interscalene nerve block. Postoperatively she was placed in a sling and transferred to the general orthopedic floors. Her hospital course was uneventful. On postop day #1 her vital signs were stable and her pain was well controlled. She was able to participate well with physical therapy doing ambulation and range of motion exercises. She was then discharged home. She will follow-up with orthopedics in 2 weeks. PG Care Time/CCT Total # of Minutes Spent Total Time Spent with Patient: Total time spent is greater than 50% in coordination of care (as documented) at patient's floor/unit and/or counseling patient: Discharge Plan Discharge Items Patient Disposition: Home - Home Health Services Reason For Visit: Left Shoulder Osteoarthritis Discharge Diagnosis: Left reverse shoulder replacement Activity: Resume your previous activity Non-emergency contact: Surgeon Call non-emergency contact if: your wound has increased redness and your wound has increased drainage Follow-up/Referrals: Angel Tapia III, CRNP [Primary Care Provider] - Diet: Regular Addtl Attending Provider Instructions: Activity and Therapy Recommendations: * If you are using [facility] then therapy will be provided at your home until they feel you have accomplished all of your goals. * If you are using [facility] then Physical Therapy will be provided until they feel you are ready to start Outpatient Physical Therapy. * If you are not using home therapy then Outpatient Physical Therapy should start about 3-5 days from your day of surgery. Therapy will last about 8-12 weeks * Wear your sling for 3 weeks, unless otherwise instructed. You may remove your sling to shower and to dress, but otherwise, you should be in your sling at all times, including while sleeping * The shoulder replacement is very stable and you can use your hand while in the sling * You were shown a series of exercises in the hospital. Do these exercises daily including the exercises you were shown in physical therapy. Medications: * Narcotic You will likely be sent home from the hospital with a prescription for the narcotic pain medication that worked best throughout your stay. * Other medications may be prescribed for specific circumstances. If you have any questions, please call the office at . * Resume previous home medications unless otherwise instructed Dressing Care: Leave the Silverlon dressing in place for 7 days. After 7 days you may remove the dressing. If the incision is not draining then you may leave the valerio open to air. If there is a little bit of drainage or if the valerio are getting stuck on your clothing then cover the incision with a dry dressing. The valerio will be removed at your 2 week follow-up appointment. Showering: You may shower with the Silverlon dressing in place. Do not let the shower spray hit the dressing directly. Pat the Silverlon dressing dry. If the dressing becomes wet underneath, then simply remove the dressing. Keep the incision dry until you are 7 days out from the day of surgery. After 7 days you may remove the Silverlon dressing and shower with the valerio exposed. Let soapy water run over the valerio and pat them dry. Do not scrub or soak the incision. Things To Watch For: * Drainage from the incision site that occurs more than one week after your surgery. * Increased redness at the incision site. * Fever above 102 degrees Fahrenheit. * Unusual chest pain or shortness of breath. * Call [facility] at with any of the above problems Follow-Up Visit: Follow-up with Dr. Thomas's PA (Cruzito Clayton) 2-3 weeks after your day of surgery. He will remove your valerio and answer any questions. If you have any additional questions or concerns, Dr Thomas is usually in the office at the same time and will be available An appointment was probably scheduled when you signed-up for surgery in the office. If you have any questions call More detailed instructions as well as Frequently Asked Questions were provided in a folder by our office when you signed-up for surgery. Please review these instructions when you get home. If you have any further questions or concerns, please feel free to call the office at [phone] Pending Studies at Discharge: No Stand-Alone Forms: My [facility] Medications and DC Order Prescriptions: New hydrocodone-acetaminophen 5-325 mg tablet 1 tab PO Q6H PRN (Reason: pain) Qty: 30 RF: 0 Continued metformin 500 mg tablet,ER jem.retention 24 hr 500 mg PO BID Qty: 180 RF: 2 celecoxib 200 mg capsule 200 mg PO BID Qty: 180 RF: 1 atorvastatin 20 mg tablet 20 mg PO HS Qty: 90 RF: 3 omeprazole 40 mg capsule,delayed release(DR/EC) 40 mg PO QAM Qty: 90 RF: 1 lisinopril 20 mg tablet 20 mg PO BID Qty: 180 RF: 1 hydrochlorothiazide 25 mg tablet 25 mg PO QAM Qty: 90 RF: 1 montelukast 10 mg tablet 10 mg PO QPM Qty: 90 RF: 2 vitamin B complex-folic acid [Super B Maxi Complex] 0.4 mg Tablet 1 tab PO BID RF: 0 Slow Fe 142 mg (45 mg iron) Tablet Extended Release 142 mg PO BID RF: 0 multivitamin Tablet 1 tab PO QAM RF: 0 Vitamin C 1,000 mg Tablet Extended Release 1,000 mg PO QAM RF: 0 omega [id number]-fish oil [Fish Oil] 1,000 mg (120 mg-180 mg) Capsule 1 cap PO BID RF: 0 albuterol sulfate [Ventolin HFA] 90 mcg/actuation HFA aerosol inhaler 1 - 2 puff inhalation .Q4-6H PRN (Reason: shortness of breath or wheezing) RF: 0 levothyroxine 88 mcg tablet 88 mcg PO QAM RF: 0 Discharge Orders: Discharge Order (Routine); Ordered 08/07/21 Ordered By: Cruzito Thomas Admission Data Admit Date/Time: 08/06/21 15:45 Attending Provider: Cruzito Thomas Admit Provider: Cruzito Thomas Primary Care Provider: Angel Tapia III
[2021-08-07] MEDS: lisinopril 20 MG TAB PO SCH (08:55)
[2021-08-07] MEDS: FERROUS SULFATE 325 MG TAB PO SCH (08:55)
[2021-08-07] MEDS: DOCUSATE SODIUM 100 MG CAP PO SCH (08:55)
[2021-08-07] MEDS ORDERED: NON-FORMULARY MEDICATION (Multivitamin Tablet) PO SCH (09:00)
[2021-08-07] MEDS ORDERED: MULTIVITAMIN TAB PO SCH (09:00)
[2021-08-07] MEDS ORDERED: hydroCHLOROthiazide 25 MG TAB PO SCH (09:00)
[2021-08-07] MEDS ORDERED: PANTOprazole 40 MG TAB PO SCH (09:00)
== END 2021-08-07 10:46 | disposition home health service (06) ==
LOC: ASU 11:24 → 3E 11:24